=== PATIENT | male | born 1955 | race Caucasian/White ===

== ENCOUNTER 2019-08-14 12:58 | Outpatient (CLI) | payer BC ==
--- NOTE | 2019-08-14 15:06 | MRI ---
BRAIN MRI WITH AND WITHOUT CONTRAST: 08/14/19 HISTORY: Senile degeneration of the brain. Memory loss x6 to 8 months. FINDINGS: No hemorrhage on the axial gradient echo sequence. No brain parenchymal mass, mass effect or midline shift. Brain volume is age appropriate. Cortical mcguire-white matter differentiation is preserved. No hydrocephalus. T2 and FLAIR white matter hyperintensity due to chronic small vessel ischemic change. Calvarium has a normal T1 marrow signal intensity. Midline brain parenchymal structures are unremarka ble. Central arterial flow voids are maintained. Absent restricted diffusion. Mild mucosal thickening of the paranasal sinuses. Partial mastoid air cells opacification. No pathologic enhancement of the brain parenchyma. IMPRESSION: 1. Absent restricted diffusion. No acute infarct. 2. Age appropriate atrophy. 3. Chronic small vessel ischemic changes of the white matter. POS: CET
== END 2019-08-14 12:59 | disposition home or self-care (01) ==
LOC: SCSMRI 12:58
PROVIDERS: ATTEND Psychiatry & Neurology Neurology
DX: G31.1 Senile degeneration of brain, not elsewhere classified (principal); I67.82 Cerebral ischemia
CPT/HCPCS: 70553; 82565